=== PATIENT | female | born 1965 | race Caucasian/White ===

== ENCOUNTER → 2023-08-03 19:03 | Outpatient (REF) | payer OTHER, SELFPAY | LOC: MRI 3T 19:03 | PROVIDERS: ATTENDING PHYSICIAN Nurse Practitioner Family | DX: M54.2 Cervicalgia (principal) | CPT/HCPCS: 72141 ==

== ENCOUNTER → 2024-01-04 10:44 | Outpatient (REF) | payer OTHER, SELFPAY | LOC: HWRAD 10:44 | PROVIDERS: ATTENDING PHYSICIAN Podiatrist; FAMILY PHYSICIAN Physician Assistant Medical | DX: M67.472 Ganglion, left ankle and foot (principal) | CPT/HCPCS: 76882 ==

== ENCOUNTER 2024-05-05 06:18 | Day surgery (SDC) | payer OTHER, SELFPAY | END 2024-05-05 11:13 | disposition home or self-care (01) | LOC: GI 06:18 | PROVIDERS: ATTENDING PHYSICIAN Internal Medicine Gastroenterology | DX: K22.70 Barrett's esophagus without dysplasia (principal); K21.00 Gastro-esophageal reflux disease with esophagitis, without bleeding; K44.9 Diaphragmatic hernia without obstruction or gangrene | CPT/HCPCS: 43239; 88305; 88342 ==

== ENCOUNTER → 2024-09-17 11:27 | Outpatient (REF) | payer OTHER, SELFPAY | LOC: WDC 11:27 | PROVIDERS: ATTENDING PHYSICIAN Obstetrics & Gynecology; FAMILY PHYSICIAN Physician Assistant Medical | DX: Z12.31 Encounter for screening mammogram for malignant neoplasm of breast (principal) | CPT/HCPCS: 77063; 77067 ==